=== PATIENT | female | born 1970 | race African-American/Black ===

== ENCOUNTER → 2016-08-24 | Outpatient (CLI) | payer BC ==
[2016-08-24 18:12] LABS: PROTHROMBIN TIME 27.5 SEC (11.4-15.4)
== END ==
LOC: OD 15:56
PROVIDERS: ATTEND Internal Medicine
DX: Z79.01 Long term (current) use of anticoagulants (principal); Z51.81 Encounter for therapeutic drug level monitoring
CPT/HCPCS: 36415; 85610

== ENCOUNTER → 2016-10-13 | Outpatient (CLI) | payer BC, OTHER ==
--- NOTE | 2016-10-13 13:56 | RADIOLOGY REPORT (SQ) ---
EXAM DESCRIPTION: FOOT LEFT COMPLETE COMPLETED DATE/TIME: 10/13/2016 1:37 pm REASON FOR STUDY: UNSPEC INJURY OF LEFT FOOT, INITIAL ENC (S99.922A), UNSPEC INJ OF LT KNEE ( S89.92 XA UNSPECIFIED INJURY OF LEFT LOWER LEG, INITIAL ENCOU S99.922A UNSPECIFIED INJURY OF LEFT FOOT, IN ITIAL ENCOUNTER COMPARISON: None. NUMBER OF VIEWS: Three views. TECHNIQUE: AP, lateral and oblique radiographic images acquired of the left foot. LIMITATIONS: None. FINDINGS: MINERALIZATION: Normal. BONES: No acute abnormality. Small plantar calcaneal spur. JOINTS: No effusions. SOFT TISSUES: No soft tissue swelling. No foreign body. OTHER: No other significant finding. IMPRESSION: Calcaneal spur with no acute abnormality. TECHNICAL DOCUMENTATION: JOB ID: [id number] [employer]- All Rights Reserved
--- NOTE | 2016-10-13 13:57 | RADIOLOGY REPORT (SQ) ---
EXAM DESCRIPTION: KNEE LEFT 3 VIEWS COMPLETED DATE/TIME: 10/13/2016 1:37 pm REASON FOR STUDY: UNSPEC INJURY OF LEFT FOOT, INITIAL ENC (S99.922A), UNSPEC INJ OF LT KNEE ( S89.92 XA UNSPECIFIED INJURY OF LEFT LOWER LEG, INITIAL ENCOU S99.922A UNSPECIFIED INJURY OF LEFT FOOT, IN ITIAL ENCOUNTER COMPARISON: None. NUMBER OF VIEWS: Four views. TECHNIQUE: AP, lateral, and both oblique radiographic images acquired of the left knee. LIMITATIONS: None. FINDINGS: MINERALIZATION: Normal. BONES: No acute fracture or dislocation. No worrisome bone lesions. JOINT: No effusion. SOFT TISSUES: No soft tissue swelling. No radio-opaque foreign body. OTHER: No other significant finding. IMPRESSION: NEGATIVE STUDY OF THE LEFT KNEE. NO RADIOGRAPHIC EVIDENCE OF ACUTE INJURY. TECHNICAL DOCUMENTATION: JOB ID: [id number] [employer]- All Rights Reserved
== END ==
LOC: RAD 13:04
PROVIDERS: ATTEND Physician Assistant
DX: S89.92XA Unspecified injury of left lower leg, initial encounter (principal); S99.922A Unspecified injury of left foot, initial encounter; X58.XXXA Exposure to other specified factors, initial encounter; Y93.9 Activity, unspecified; Y92.9 Unspecified place or not applicable

== ENCOUNTER 2017-06-24 17:47 | Inpatient (IN) | payer BC ==
[2017-06-24] MEDS ORDERED: TAPENTADOL HYDROCHLORIDE 100 MG PO PRN (18:49)
[2017-06-24 18:54] LABS: ABSOLUTE EOSINOPHILS # (AUTO) 0.1 10^3/uL (0.0-0.6); ABSOLUTE LYMPHOCYTES (AUTO) 0.9 10^3/uL (0.5-4.7); ABSOLUTE MONOCYTES (AUTO) 0.4 10^3/uL (0.1-1.4); BASOPHILS % (AUTO) 0.2 % (0-2); EOSINOPHILS % (AUTO) 1.4 % (0-6); HEMATOCRIT 35.7 % (36.0-47.0); HEMOGLOBIN 11.5 g/dL (12.0-15.5); LYMPHOCYTES % (AUTO) 20.2 % (13-45); MEAN CORPUSCULAR HEMOGLOBIN 27.2 pg (27.0-33.4); MEAN CORPUSCULAR HGB CONC 32.3 g/dL (32.0-36.0); MEAN CORPUSCULAR VOLUME 84 fl (80-97); MONOCYTES % (AUTO) 8.5 % (3-13); PLATELET COUNT 287 10^3/uL (150-450); RED BLOOD COUNT 4.24 10^6/uL (3.72-5.28); RED CELL DISTRIBUTION WIDTH 15.2 % (11.5-14.0); SEGMENTED NEUTROPHILS % (AUTO) 69.7 % (42-78); TOTAL CELLS COUNTED % (AUTO) 100 %; WHITE BLOOD COUNT 4.3 10^3/uL (4.0-10.5)
[2017-06-24 18:59] LABS: INTERNATIONAL RATION (INR) 3.52; PROTHROMBIN TIME 36.9 SEC (11.4-15.4)
[2017-06-24] MEDS ORDERED: INFLUENZA ADLT QUAD (36MOS+) 2017-18 VAC 0.5 ML SYR IM PRN (19:15)
[2017-06-24 19:16] LABS: ALANINE AMINOTRANSFERASE 18 U/L (9-52); ALBUMIN 3.9 g/dL (3.5-5.0); ALKALINE PHOSPHATASE 79 U/L (38-126); ANION GAP 11 (5-19); ASPARTATE AMINO TRANSFERASE 17 U/L (14-36); BILIRUBIN,DIRECT 0.4 mg/dL (0.0-0.4); BILIRUBIN,TOTAL 0.4 mg/dL (0.2-1.3); BLOOD UREA NITROGEN 11 mg/dL (7-20); CARBON DIOXIDE 26 mmol/L (22-30); CHLORIDE 107 mmol/L (98-107); CREATINE KINASE 69 U/L (30-135); GLUCOSE 69 mg/dL (75-110); POTASSIUM 4.2 mmol/L (3.6-5.0); SODIUM 143.8 mmol/L (137-145); TOTAL PROTEIN 8.1 g/dL (6.3-8.2)
[2017-06-24 19:27] LABS: CREATINE KINASE MB 0.22 ng/mL (<4.55); TROPONIN I 0.015 ng/mL
[2017-06-24] MEDS ORDERED: HYDROMORPHONE HCL INJ/PF 2 MG/ML AMPULE IV ONE (19:30)
--- NOTE | 2017-06-24 19:54 | EKG REPORT ---
SEVERITY:- NORMAL ECG - SINUS RHYTHM : Confirmed by: Cale Jones MD 24-Jun-2017 19:52:28
[2017-06-24] MEDS ORDERED: LANSOPRAZOLE 30 MG TAB.RAP.DR PO ONE (22:00)
[2017-06-24] MEDS ORDERED: WARFARIN SODIUM 5 MG TABLET PO SCH (22:00)
--- NOTE | 2017-06-24 22:02 | RADIOLOGY REPORT (SQ) ---
EXAM DESCRIPTION: CTA CHEST COMPLETED DATE/TIME: 06/24/2017 8:35 pm REASON FOR STUDY: CHEST PAIN, PLEURISY, H/O PE COMPARISON: None. TECHNIQUE: CT scan of the chest performed using helical scanning technique with dynamic intravenous contrast injection. Images reviewed with lung, soft tissue and bone windows. Reconstructed coronal and sagittal MPR images reviewed. Additional 3 dimensional post-processing performed to develop Maximal Intensity Projection images (IN P). All images stored on PACS. All CT scanners at this facility use dose modulation, iterative reconstruction, and/or weight based d osing when appropriate to reduce radiation dose to as low as reasonably achievable (ALARA). [facility]: Dose Right [facility]: CareDose [facility]: Dose Right [facility]: Teradose 4D [facility]: [employer] CONTRAST TYPE AND DOSE: contrast/concentration: Isovue 370.00 mg/ml; Total Contrast Delivered: 86.0 ml; Total Saline Delivered: 80.0 ml Contrast bolus adequate for pulmonary arteries and aorta. RENAL FUNCTION: Creatinine 0.95 RADIATION DOSE: CT Rad equipment meets quality standard of care and radiation dose reduction techniq ues were employed. CTDIvol: 48.7 - 58.6 mGy. DLP: 1870 mGy-cm. . LIMITATIONS: None. FINDINGS: LUNGS AND PLEURA: No masses, infiltrates, pneumothorax. No pleural effusions, calcificati ons. AORTA AND GREAT VESSELS: No aneurysm. Contrast bolus not optimized for the aorta. HEART: Cardiac enlargement without pericardial effusion. No significant coronary artery calcification s. PULMONARY ARTERIES: Main pulmonary arteries clear. Minimal clot is suggested in the proximal left lo wer lobe arterial branches. HILAR AND MEDIASTINAL STRUCTURES: Shotty nodes. No enlarged or abnormal nodes. HARDWARE: None in the chest. UPPER ABDOMEN: IVC filter. Limited assessment is otherwise normal. THYROID AND OTHER SOFT TISSUES: Enlarged nodular left thyroid lobe. Shotty symmetric bilateral axill jayjay adenopathy. BONES: No acute or significant finding. 3D MIPS: Confirm above findings. OTHER: No other significant finding. IMPRESSION: 1. Minimal left lower lobe pulmonary embolus. COMMENT: Quality ID # [id number]: Final reports with documentation of one or more dose reduction techniques (e.g., Automated exposure control, adjustment of the mA and/or kV according to patient size, use of iterative reconstruction technique) TECHNICAL DOCUMENTATION: JOB ID: [id number]- All Rights Reserved
--- NOTE | 2017-06-24 22:25 | PDOC H&P ---
History of Present Illness Admission Date/PCP: 06/24/17 17:47 DEX MCINTOSH MD History of Present Illness: DEVI VANN is a 47 year old female, She has a history of pulmonary embolism, she came to the office today for evaluation of, pleurisy, left sided chest pain that radiates to the back. She has a history of DVT and pulmonary embolism on anticoagulation with Coumadin. She was admitted directly from the office because of high index of suspicion for PE based on her symptomatology CTA chest was done it confirmed thrombosis in the proximal left lower lobe. The INR is 3.52 which is therapeutic this suggest that she still developed pulmonary embolism despite being optimized on Coumadin. She may need to use a different anticoagulation, she will be taken off Coumadin and she will be started on Xarelto once INR is below 2. Past Medical History Cardiac Medical History: Reports: DVT, Hypertension, Pulmonary Embolism Endocrine Medical History: Reports: Hypothyroidism, Obesity Past Surgical History Past Surgical History: Reports: Cardiac Catheterization, Tonsillectomy Denies: Pacemaker Social History Smoking Status: Former Smoker Hx Recreational Drug Use: No Hx Prescription Drug Abuse: No Family History Family History: Reviewed & Not Pertinent Parental Family History Reviewed: Yes Children Family History Reviewed: Yes Sibling(s) Family History Reviewed.: Yes Medication/Allergy Home Medications: Tapentadol Hydrochloride [Nucynta] 100 mg PO TID PRN 11/23/11 Warfarin Sodium [Coumadin 5 Mg Tablet] 10 mg PO DAILY 11/23/11 Allergies/Adverse Reactions: No Known Allergies Allergy (Verified 07/04/14 11:57) Review of Systems Constitutional: ABSENT: chills, fever(s), headache(s), weight gain, weight loss Eyes: ABSENT: visual disturbances Ears: ABSENT: hearing changes Cardiovascular: PRESENT: chest pain Respiratory: PRESENT: dyspnea Gastrointestinal: ABSENT: abdominal pain, constipation, diarrhea, hematemesis, hematochezia, nausea, vomiting Genitourinary: ABSENT: dysuria, hematuria Musculoskeletal: ABSENT: joint swelling Integumentary: ABSENT: rash, wounds Neurological: ABSENT: abnormal gait, abnormal speech, confusion, dizziness, focal weakness, syncope Psychiatric: ABSENT: anxiety, depression, homidical ideation, suicidal ideation Endocrine: ABSENT: cold intolerance, heat intolerance, menstrual abnormalities, polydipsia, polyuria Hematologic/Lymphatic: ABSENT: easy bleeding, easy bruising, lymphadenopathy Physical Exam Vital Signs: Temp Pulse Resp BP Pulse Ox 98.1 F 82 15 125/75 100 06/24/17 19:53 06/24/17 19:53 06/24/17 19:53 06/24/17 19:53 06/24/17 19:53 General appearance: PRESENT: no acute distress Head exam: PRESENT: atraumatic, normocephalic Eye exam: PRESENT: conjunctiva pink, EOMI, PERRLA Ear exam: PRESENT: normal external ear exam Mouth exam: PRESENT: moist, tongue midline Neck exam: PRESENT: full ROM Respiratory exam: PRESENT: clear to auscultation mohsen Cardiovascular exam: PRESENT: RRR, +S1, +S2 Pulses: PRESENT: normal dorsalis pedis pul, +2 pedal pulses bilateral Vascular exam: PRESENT: normal capillary refill GI/Abdominal exam: PRESENT: normal bowel sounds, soft Rectal exam: PRESENT: deferred Neurological exam: PRESENT: alert, awake, oriented to person, oriented to place , oriented to time, oriented to situation, CN II-XII grossly intact Psychiatric exam: PRESENT: appropriate affect, normal mood Skin exam: PRESENT: dry, intact, warm. ABSENT: cyanosis, rash Results Laboratory Results: 06/24/17 18:30 06/24/17 18:30 06/24/17 06/24/17 18:30 18:30 WBC 4.3 RBC 4.24 Hgb 11.5 L Hct 35.7 L MCV 84 MCH 27.2 MCHC 32.3 RDW 15.2 H Plt Count 287 Seg Neutrophils % 69.7 Lymphocytes % 20.2 Monocytes % 8.5 Eosinophils % 1.4 Basophils % 0.2 Absolute Neutrophils 3.0 Absolute Lymphocytes 0.9 Absolute Monocytes 0.4 Absolute Eosinophils 0.1 Absolute Basophils 0.0 Sodium 143.8 Potassium 4.2 Chloride 107 Carbon Dioxide 26 Anion Gap 11 BUN 11 Creatinine 0.95 Est GFR ( Amer) > 60 Est GFR (Non-Af Amer) > 60 Glucose 69 L Calcium 9.0 Total Bilirubin 0.4 AST 17 ALT 18 Alkaline Phosphatase 79 Total Protein 8.1 Albumin 3.9 06/24/17 06/24/17 18:30 18:30 Creatine Kinase 69 CK-MB (CK-2) 0.22 Troponin I 0.015 Impressions: Chest/Abdomen CTA 06/24/17 00:00 IMPRESSION: 1. Minimal left lower lobe pulmonary embolus. Assessment & Plan - Diagnosis (1) Pulmonary embolism Qualifiers: Pulmonary embolism type: other Chronicity: unspecified Acute cor pulmonale presence: without acute cor pulmonale Qualified Code(s): I26.99 - Other pulmonary embolism without acute cor pulmonale Is this a current diagnosis for this admission?: Yes Plan: Patient developed pulmonary embolism despite Coumadin optimization, she will required a different anticoagulantThe symptoms she manifested is consistent with pulmonary embolism
[2017-06-24] MEDS: HYDROMORPHONE HCL INJ/PF 2 MG/ML AMPULE IV PRN (23:31)
[2017-06-25 03:09] LABS: CREATINE KINASE MB < 0.22 ng/mL (<4.55); TROPONIN I < 0.012 ng/mL
[2017-06-25] MEDS: HYDROMORPHONE HCL INJ/PF 2 MG/ML AMPULE IV PRN ×5 (03:40→21:40)
[2017-06-25] MEDS: LANSOPRAZOLE 30 MG TAB.RAP.DR PO SCH ×2 (05:22→17:33)
--- NOTE | 2017-06-25 08:05 | EKG REPORT ---
SEVERITY:- ABNORMAL ECG - SINUS RHYTHM NONSPECIFIC ST-T CHANGES ANTEROSEPTAL LEADS. : Confirmed by: Cale Jones MD 25-Jun-2017 08:04:02
[2017-06-25 09:11] LABS: INTERNATIONAL RATION (INR) 3.37; PROTHROMBIN TIME 35.6 SEC (11.4-15.4)
[2017-06-25] MEDS ORDERED: (PENDING PHARMACY ID) (Warfarin Sodium 10 MG) PO SCH (10:00)
[2017-06-25 12:04] LABS: CREATINE KINASE MB < 0.22 ng/mL (<4.55)
[2017-06-25 12:05] LABS: TROPONIN I < 0.012 ng/mL
--- NOTE | 2017-06-25 21:14 | PDOC PROGRESS REPORT ---
Subjective Progress Note for:: 06/25/17 Subjective:: Patient was admitted yesterday for the management of pulmonary embolism. The INR is supratherapeutic, Coumadin is on hold, she will be started on Xarelto once INR is below 2 Reason For Visit: CHEST PAIN,PLEURISY,H/O PE Physical Exam Vital Signs: Temp Pulse Resp BP Pulse Ox 98.3 F 86 18 130/77 H 99 06/25/17 20:00 06/25/17 20:00 06/25/17 20:00 06/25/17 20:00 06/25/17 20:00 Intake & Output 06/24/17 06/25/17 06/26/17 06:59 06:59 06:59 Intake Total 839 320 Balance 839 320 General appearance: PRESENT: no acute distress Head exam: PRESENT: atraumatic, normocephalic Eye exam: PRESENT: conjunctiva pink, EOMI, PERRLA Ear exam: PRESENT: normal external ear exam Mouth exam: PRESENT: moist, tongue midline Neck exam: PRESENT: full ROM Respiratory exam: PRESENT: clear to auscultation mohsen Cardiovascular exam: PRESENT: +S1, +S2 Vascular exam: PRESENT: normal capillary refill GI/Abdominal exam: PRESENT: normal bowel sounds, soft Rectal exam: PRESENT: deferred Neurological exam: PRESENT: alert, awake, oriented to person, oriented to place , oriented to time, oriented to situation, CN II-XII grossly intact Psychiatric exam: PRESENT: appropriate affect, normal mood Skin exam: PRESENT: dry, intact, warm Results Laboratory Results: 06/24/17 18:30 06/24/17 18:30 06/24/17 06/24/17 06/25/17 18:30 18:30 02:29 Creatine Kinase 69 56 CK-MB (CK-2) 0.22 Troponin I 0.015 06/25/17 06/25/17 06/25/17 02:29 11:11 11:11 Creatine Kinase 51 CK-MB (CK-2) < 0.22 < 0.22 Troponin I < 0.012 < 0.012 Impressions: Chest/Abdomen CTA 06/24/17 00:00 IMPRESSION: 1. Minimal left lower lobe pulmonary embolus. Assessment & Plan - Diagnosis (1) Pulmonary embolism Qualifiers: Pulmonary embolism type: other Chronicity: unspecified Acute cor pulmonale presence: without acute cor pulmonale Qualified Code(s): I26.99 - Other pulmonary embolism without acute cor pulmonale Is this a current diagnosis for this admission?: Yes (2) Morbid obesity Is this a current diagnosis for this admission?: Yes (3) Pleurisy Is this a current diagnosis for this admission?: Yes Plan: She continues to require Dilaudid for pain control
[2017-06-26] MEDS: HYDROMORPHONE HCL INJ/PF 2 MG/ML AMPULE IV PRN ×6 (01:42→21:51)
[2017-06-26] MEDS: LANSOPRAZOLE 30 MG TAB.RAP.DR PO SCH ×2 (05:30→16:16)
[2017-06-26 07:28] LABS: INTERNATIONAL RATION (INR) 2.72; PROTHROMBIN TIME 30.2 SEC (11.4-15.4)
--- NOTE | 2017-06-26 21:17 | PDOC PROGRESS REPORT ---
Subjective Progress Note for:: 06/26/17 Subjective:: She was seen by the bedside, INR still above 2, Reason For Visit: PULMONARY EMBOLISM Physical Exam Vital Signs: Temp Pulse Resp BP Pulse Ox 98.4 F 103 H 15 106/64 100 06/26/17 19:43 06/26/17 19:43 06/26/17 19:43 06/26/17 19:43 06/26/17 19:43 Intake & Output 06/25/17 06/26/17 06/27/17 06:59 06:59 06:59 Intake Total 839 783 293 Output Total 450 Balance 839 333 293 General appearance: PRESENT: no acute distress, well-developed, well-nourished Head exam: PRESENT: atraumatic, normocephalic Eye exam: PRESENT: conjunctiva pink, EOMI, PERRLA Ear exam: PRESENT: normal external ear exam Mouth exam: PRESENT: moist, tongue midline Neck exam: PRESENT: full ROM Respiratory exam: PRESENT: clear to auscultation mohsen Cardiovascular exam: PRESENT: RRR, +S1, +S2 Vascular exam: PRESENT: normal capillary refill GI/Abdominal exam: PRESENT: normal bowel sounds, soft Rectal exam: PRESENT: deferred Neurological exam: PRESENT: alert, awake, oriented to person, oriented to place , oriented to time, oriented to situation, CN II-XII grossly intact. ABSENT: motor sensory deficit Psychiatric exam: PRESENT: appropriate affect, normal mood. ABSENT: homicidal ideation, suicidal ideation Skin exam: PRESENT: dry, intact, warm. ABSENT: cyanosis, rash Results Laboratory Results: 06/24/17 18:30 06/24/17 18:30 06/24/17 06/24/17 06/25/17 18:30 18:30 02:29 Creatine Kinase 69 56 CK-MB (CK-2) 0.22 Troponin I 0.015 06/25/17 06/25/17 06/25/17 02:29 11:11 11:11 Creatine Kinase 51 CK-MB (CK-2) < 0.22 < 0.22 Troponin I < 0.012 < 0.012 Impressions: Chest/Abdomen CTA 06/24/17 00:00 IMPRESSION: 1. Minimal left lower lobe pulmonary embolus. Assessment & Plan - Diagnosis (1) Pulmonary embolism Qualifiers: Pulmonary embolism type: other Chronicity: unspecified Acute cor pulmonale presence: without acute cor pulmonale Qualified Code(s): I26.99 - Other pulmonary embolism without acute cor pulmonale Is this a current diagnosis for this admission?: Yes (2) Morbid obesity Is this a current diagnosis for this admission?: Yes (3) Pleurisy Is this a current diagnosis for this admission?: Yes
[2017-06-27] MEDS: HYDROMORPHONE HCL INJ/PF 2 MG/ML AMPULE IV PRN ×5 (01:53→22:46)
[2017-06-27] MEDS: LANSOPRAZOLE 30 MG TAB.RAP.DR PO SCH ×2 (06:07→17:32)
[2017-06-27 07:52] LABS: INTERNATIONAL RATION (INR) 2.35; PROTHROMBIN TIME 26.9 SEC (11.4-15.4)
[2017-06-27] MEDS ORDERED: KETOROLAC TROMETHAMINE INJ/PF 30 MG/1 ML SDV IV PRN (10:16)
[2017-06-27] MEDS ORDERED: NORMAL SALINE 1000 ML 1,000 ML IV PRN (10:17)
[2017-06-27 11:07] LABS: CREATINE KINASE MB < 0.22 ng/mL (<4.55); TROPONIN I < 0.012 ng/mL
--- NOTE | 2017-06-27 14:48 | PDOC PROGRESS REPORT ---
Subjective Progress Note for:: 06/27/17 Subjective:: She complained of chest pain earlier today, the chest pain is fleeting is very tender on palpation suggesting a chest wall pain. The INR is still above 2 not yet started on Xarelto Reason For Visit: PULMONARY EMBOLISM Physical Exam Vital Signs: Temp Pulse Resp BP Pulse Ox 98.1 F 95 16 115/62 98 06/27/17 08:33 06/27/17 08:33 06/27/17 08:33 06/27/17 08:33 06/27/17 08:33 Intake & Output 06/26/17 06/27/17 06/28/17 06:59 06:59 06:59 Intake Total 783 1038 Output Total 450 850 Balance 333 188 Weight 156 kg General appearance: PRESENT: no acute distress, well-developed, well-nourished Head exam: PRESENT: atraumatic, normocephalic Eye exam: PRESENT: conjunctiva pink, EOMI, PERRLA Ear exam: PRESENT: normal external ear exam Mouth exam: PRESENT: moist, tongue midline Neck exam: PRESENT: full ROM Respiratory exam: PRESENT: chest wall tenderness, clear to auscultation mohsen Cardiovascular exam: PRESENT: RRR, +S1, +S2 Vascular exam: PRESENT: normal capillary refill GI/Abdominal exam: PRESENT: normal bowel sounds, soft Rectal exam: PRESENT: deferred Neurological exam: PRESENT: alert, awake, oriented to person, oriented to place , oriented to time, oriented to situation, CN II-XII grossly intact Psychiatric exam: PRESENT: appropriate affect, normal mood Skin exam: PRESENT: dry, intact, warm Results Laboratory Results: 06/24/17 18:30 06/24/17 18:30 06/24/17 06/24/17 06/25/17 18:30 18:30 02:29 Creatine Kinase 69 56 CK-MB (CK-2) 0.22 Troponin I 0.015 06/25/17 06/25/17 06/25/17 02:29 11:11 11:11 Creatine Kinase 51 CK-MB (CK-2) < 0.22 < 0.22 Troponin I < 0.012 < 0.012 06/27/17 06/27/17 10:20 10:20 Creatine Kinase 39 CK-MB (CK-2) < 0.22 Troponin I < 0.012 Impressions: Chest/Abdomen CTA 06/24/17 00:00 IMPRESSION: 1. Minimal left lower lobe pulmonary embolus. Assessment & Plan - Diagnosis (1) Pulmonary embolism Qualifiers: Pulmonary embolism type: other Chronicity: unspecified Acute cor pulmonale presence: without acute cor pulmonale Qualified Code(s): I26.99 - Other pulmonary embolism without acute cor pulmonale Is this a current diagnosis for this admission?: Yes (2) Morbid obesity Is this a current diagnosis for this admission?: Yes (3) Pleurisy Is this a current diagnosis for this admission?: Yes (4) Chest wall pain Is this a current diagnosis for this admission?: Yes Plan: Give Toradol 30 mg IV every 6 hours , 4 doses
--- NOTE | 2017-06-27 16:08 | EKG REPORT ---
SEVERITY:- BORDERLINE ECG - SINUS RHYTHM BORDERLINE T ABNORMALITIES, INFERIOR LEADS : Confirmed by: Cale Jones MD 27-Jun-2017 16:08:22
[2017-06-28] MEDS: HYDROMORPHONE HCL INJ/PF 2 MG/ML AMPULE IV PRN ×5 (03:05→20:01)
[2017-06-28] MEDS: LANSOPRAZOLE 30 MG TAB.RAP.DR PO SCH ×2 (06:50→18:00)
[2017-06-28 07:28] LABS: INTERNATIONAL RATION (INR) 1.92; PROTHROMBIN TIME 23.1 SEC (11.4-15.4)
[2017-06-28] MEDS ORDERED: RIVAROXABAN 15 MG TABLET PO ONE (10:00)
[2017-06-28] MEDS: RIVAROXABAN 15 MG TABLET PO SCH (18:01)
--- NOTE | 2017-06-28 20:31 | PDOC PROGRESS REPORT ---
Subjective Progress Note for:: 06/28/17 Subjective:: She was seen by the bedside, she has less pain, chest, 2D she was started on Xarelto today, the INR is below 2 Reason For Visit: PULMONARY EMBOLISM Physical Exam Vital Signs: Temp Pulse Resp BP Pulse Ox 98.3 F 94 15 123/70 100 06/28/17 20:00 06/28/17 20:00 06/28/17 20:00 06/28/17 20:00 06/28/17 20:00 Intake & Output 06/27/17 06/28/17 06/29/17 06:59 06:59 06:59 Intake Total 1038 1045 100 Output Total 850 Balance 188 1045 100 Weight 156.3 kg General appearance: PRESENT: no acute distress, well-developed, well-nourished Head exam: PRESENT: atraumatic, normocephalic Eye exam: PRESENT: conjunctiva pink, EOMI, PERRLA Ear exam: PRESENT: normal external ear exam Mouth exam: PRESENT: moist, tongue midline Neck exam: PRESENT: full ROM Respiratory exam: PRESENT: clear to auscultation mohsen Cardiovascular exam: PRESENT: RRR, +S1, +S2 Pulses: PRESENT: normal dorsalis pedis pul, +2 pedal pulses bilateral Vascular exam: PRESENT: normal capillary refill GI/Abdominal exam: PRESENT: normal bowel sounds, soft Rectal exam: PRESENT: deferred Neurological exam: PRESENT: alert, awake, oriented to person, oriented to place , oriented to time, oriented to situation, CN II-XII grossly intact Psychiatric exam: PRESENT: appropriate affect, normal mood Skin exam: PRESENT: dry, intact, warm. ABSENT: cyanosis, rash Results Laboratory Results: 06/24/17 18:30 06/24/17 18:30 06/24/17 06/24/17 06/25/17 18:30 18:30 02:29 Creatine Kinase 69 56 CK-MB (CK-2) 0.22 Troponin I 0.015 06/25/17 06/25/17 06/25/17 02:29 11:11 11:11 Creatine Kinase 51 CK-MB (CK-2) < 0.22 < 0.22 Troponin I < 0.012 < 0.012 06/27/17 06/27/17 10:20 10:20 Creatine Kinase 39 CK-MB (CK-2) < 0.22 Troponin I < 0.012 Impressions: Chest/Abdomen CTA 06/24/17 00:00 IMPRESSION: 1. Minimal left lower lobe pulmonary embolus. Assessment & Plan - Diagnosis (1) Pulmonary embolism Qualifiers: Pulmonary embolism type: other Chronicity: unspecified Acute cor pulmonale presence: without acute cor pulmonale Qualified Code(s): I26.99 - Other pulmonary embolism without acute cor pulmonale Is this a current diagnosis for this admission?: Yes (2) Morbid obesity Is this a current diagnosis for this admission?: Yes (3) Pleurisy Is this a current diagnosis for this admission?: Yes (4) Chest wall pain Is this a current diagnosis for this admission?: Yes
--- NOTE | 2017-06-28 20:36 | PDOC DISCHARGE SUMMARY ---
General - Admit/Disc Date/PCP Admission Date/Primary Care Provider: 06/24/17 17:47 DEX MCINTOSH MD Discharge Date: 06/29/17 - Discharge Diagnosis (1) Pulmonary embolism Is this a current diagnosis for this admission?: Yes (2) Morbid obesity Is this a current diagnosis for this admission?: Yes (3) Pleurisy Is this a current diagnosis for this admission?: Yes (4) Chest wall pain Is this a current diagnosis for this admission?: Yes - Additional Information Discharge Activity: Activity As Tolerated Prescriptions: Rivaroxaban [Xarelto 15 mg Tablet] 15 mg PO BIDBS #42 tablet Home Medications: Tapentadol Hydrochloride [Nucynta] 100 mg PO TID PRN 11/23/11 Rivaroxaban [Xarelto 15 mg Tablet] 15 mg PO BIDBS #42 tablet 06/28/17 History of Present Illness History of Present Illness: DEVI VANN is a 47 year old female, She has a history of pulmonary embolism, she came to the office today for evaluation of, pleurisy, left sided chest pain that radiates to the back. She has a history of DVT and pulmonary embolism on anticoagulation with Coumadin. She was admitted directly from the office because of high index of suspicion for PE based on her symptomatology CTA chest was done it confirmed thrombosis in the proximal left lower lobe. The INR is 3.52 which is therapeutic this suggest that she still developed pulmonary embolism despite being optimized on Coumadin. She may need to use a different anticoagulation, she will be taken off Coumadin and she will be started on Xarelto once INR is below 2. Hospital Course Hospital Course: She was admitted for the management of pulmonary embolism, she was on Coumadin, INR was 3.5 when she presented with typical pleurisy, CTA chest was done, confirmed pulmonary embolism. The Coumadin was held on until INR is below 2 and then she was started on Xarelto. She had episode of severe chest pain, it was tender on palpation this suggests chest wall pain, was treated with intravenous Toradol, 1 dose, patient declined to receive any more doses because she said the medication makes her feel weird. Physical Exam Vital Signs: Temp Pulse Resp BP Pulse Ox 98.3 F 94 15 123/70 100 06/28/17 20:00 06/28/17 20:00 06/28/17 20:00 06/28/17 20:00 06/28/17 20:00 Intake & Output 06/27/17 06/28/17 06/29/17 06:59 06:59 06:59 Intake Total 1038 1045 100 Output Total 850 Balance 188 1045 100 Weight 156.3 kg General appearance: PRESENT: no acute distress, well-developed, well-nourished Head exam: PRESENT: atraumatic, normocephalic Eye exam: PRESENT: conjunctiva pink, EOMI, PERRLA Ear exam: PRESENT: normal external ear exam Mouth exam: PRESENT: moist, tongue midline Neck exam: PRESENT: full ROM Respiratory exam: PRESENT: clear to auscultation mohsen Cardiovascular exam: PRESENT: RRR, +S1, +S2 Pulses: PRESENT: normal dorsalis pedis pul, +2 pedal pulses bilateral Vascular exam: PRESENT: normal capillary refill GI/Abdominal exam: PRESENT: normal bowel sounds, soft Rectal exam: PRESENT: deferred Neurological exam: PRESENT: alert, awake, oriented to person, oriented to place , oriented to time, oriented to situation, CN II-XII grossly intact Psychiatric exam: PRESENT: appropriate affect, normal mood Skin exam: PRESENT: dry, intact, warm Results Laboratory Results: 06/24/17 18:30 06/24/17 18:30 06/24/17 06/24/17 06/25/17 18:30 18:30 02:29 Creatine Kinase 69 56 CK-MB (CK-2) 0.22 Troponin I 0.015 06/25/17 06/25/17 06/25/17 02:29 11:11 11:11 Creatine Kinase 51 CK-MB (CK-2) < 0.22 < 0.22 Troponin I < 0.012 < 0.012 06/27/17 06/27/17 10:20 10:20 Creatine Kinase 39 CK-MB (CK-2) < 0.22 Troponin I < 0.012 Impressions: Chest/Abdomen CTA 06/24/17 00:00 IMPRESSION: 1. Minimal left lower lobe pulmonary embolus. Qualifiers - * PATEINT BEING DISCHARGED WITH ANY OF THE FOLLOWING DIAGNOSIS?: VTE (PE or DVT) VTE patient discharged on overlapping Therapy?: Yes Plan Discharge Plan: She is no longer taking warfarin, she is started on Xarelto, 15mg, 1 tablet p.o. twice daily for 21 days then 20 mg 1 tablet daily for 6 months to 1 year then 10 mg p.o. daily indefinitely
[2017-06-28] MEDS ORDERED: POLYETHYLENE GLYCOL 3350 POWDER 17 GM/1 PACKET PO PRN (20:45)
[2017-06-29] MEDS: HYDROMORPHONE HCL INJ/PF 2 MG/ML AMPULE IV PRN ×4 (00:09→12:38)
[2017-06-29] MEDS: LANSOPRAZOLE 30 MG TAB.RAP.DR PO SCH (05:06)
[2017-06-29] MEDS: RIVAROXABAN 15 MG TABLET PO SCH (07:52)
[2017-06-29 08:30] LABS: INTERNATIONAL RATION (INR) 2.74; PROTHROMBIN TIME 30.3 SEC (11.4-15.4)
[2017-06-29 12:12] VITALS: BP 108/64
== END 2017-06-29 16:00 | disposition home or self-care (01) | DRG 176 ==
LOC: OBSVTOIN 17:47 → 5 17:47
PROVIDERS: ADMIT Internal Medicine; ATTEND Internal Medicine
DX: I26.99 Other pulmonary embolism without acute cor pulmonale (principal); Z68.43 Body mass index [BMI] 50.0-59.9, adult; I10 Essential (primary) hypertension; E66.9 Obesity, unspecified; R09.1 Pleurisy; E03.9 Hypothyroidism, unspecified; Z86.711 Personal history of pulmonary embolism; Z86.718 Personal history of other venous thrombosis and embolism; Z79.01 Long term (current) use of anticoagulants; Z87.891 Personal history of nicotine dependence
CPT/HCPCS: 36415; 71275; 80048; 80076; 82550; 82553; 84484; 85025; 85610; 93005; 93010; G0378; G0379; J1170; J1885

== ENCOUNTER 2017-07-02 17:05 | Emergency (ER) | payer BC ==
[2017-07-02] MEDS ORDERED: IPRATROPIUM/ALBUTEROL 0.5-2.5 MG/3 ML AMPUL NEB ONE ×2 (17:11→18:05)
[2017-07-02] MEDS ORDERED: LORAZEPAM INJ 2 MG/1 ML VIAL ONE (17:11)
[2017-07-02] MEDS ORDERED: FENTANYL CITRATE INJ/PF 100 MCG/2 ML AMPUL ONE (17:15)
[2017-07-02 17:37] LABS: ARTERIAL BLOOD BASE EXCESS -5.8 mmol/L; ARTERIAL BLOOD H2CO3 0.82 mmol/L (1.05-1.35); ARTERIAL BLOOD HCO3 17.2 mmol/L (20-26); ARTERIAL BLOOD O2 SATURATION 97.6 % (94-98); ARTERIAL BLOOD PCO2 27.3 mmHg (35-45); ARTERIAL BLOOD PH 7.42 (7.35-7.45); ARTERIAL BLOOD PO2 96.7 mmHg (80-100)
--- NOTE | 2017-07-02 17:38 | ER Document Report ---
ED General <BHAVYA LANTIGUA - Last Filed: 07/03/17 01:33> - General Mode of Arrival: Medic Information source: Patient, Relative TRAVEL OUTSIDE OF THE [place] IN LAST 30 DAYS: No - HPI Onset: Other - 2 days prior to arrival Onset/Duration: Gradual, Persistent Quality of pain: Pressure, Stabbing Severity: Moderate Pain Level: 2 Associated symptoms: denies: Productive cough, Fever Exacerbated by: Coughing, Deep breathing Relieved by: Remaining still Similar symptoms previously: Yes Recently seen / treated by doctor: Yes - Recent hospitalization with discharge <JOEY AGUILAR - Last Filed: 07/03/17 14:35> - General Chief Complaint: Respiratory Distress Stated Complaint: WEAKNESS Time Seen by Provider: 07/02/17 17:23 Notes: 47-year-old female with a history of factor V Leiden and recent diagnosis of pulmonary embolism presents via EMS in respiratory distress with associated chest pain. EMS reports they found the patient cyanotic with an O2 saturation of 50. Was placed on CPAP and became more arousable per EMS. Had a recent hospitalization where she was found to have a pulmonary embolism. She was discharged 3 days prior to arrival. She states since the time of discharge she is experienced consistent chest pain, shortness of breath. She is currently on Xarelto. She states she has been compliant since discharge. She denies any past medical history of hypertension coronary artery disease or congestive heart failure. (JOEY AGUILAR) - Related Data Allergies/Adverse Reactions: No Known Allergies Allergy (Verified 07/04/14 11:57) Past Medical History <BHAVYA LANTIGUA - Last Filed: 07/03/17 01:33> - General Information source: Patient, Relative, Emergency Med Personnel, [facility] Records - Social History Smoking Status: Never Smoker Frequency of alcohol use: None Drug Abuse: None Lives with: Family Family History: Reviewed & Not Pertinent - Past Medical History Cardiac Medical History: Reports: Hx DVT, Hx Pulmonary Embolism Pulmonary Medical History: Denies: Hx Tuberculosis Endocrine Medical History: Reports: Hx Hypothyroidism Past Surgical History: Reports: Hx Cardiac Catheterization, Hx Gynecologic Surgery, Hx Tonsillectomy. Denies: Hx Pacemaker - Immunizations Immunizations up to date: Yes Hx Diphtheria, Pertussis, Tetanus Vaccination: Yes Hx Pneumococcal Vaccination: 07/03/09 <JOEY AGUILAR - Last Filed: 07/03/17 14:35> Other: Factor V Leiden (JOEY AGUILAR) Review of Systems - Review of Systems Constitutional: Weakness. denies: Fever EENT: No symptoms reported Cardiovascular: Chest pain Respiratory: Short of breath Gastrointestinal: No symptoms reported Genitourinary: No symptoms reported <JOEY AGUILAR - Last Filed: 07/03/17 14:35> Physical Exam - Respiratory Respiratory status: Respiratory distress, Tachypnea Chest status: Tender Breath sounds: Normal Chest palpation: Tender - Cardiovascular Rhythm: Tachycardia Heart sounds: Normal auscultation Murmur: No Pulses: Bounding: Brachial, Radial, Posterior tibial Decreased capillary refill in seconds: 3 - Extremities General upper extremity: Normal inspection, Nontender, Normal color, Normal ROM , Normal temperature General lower extremity: Normal inspection, Nontender, Normal color, Normal ROM , Normal temperature, Normal weight bearing. No: Doug's sign <JOEY AGUILAR - Last Filed: 07/03/17 14:35> - Vital signs Vitals: Resp 43 H 07/02/17 17:09 Course - Laboratory Result Diagrams: 07/02/17 19:35 07/02/17 19:35 <BHAVYA LANTIGUA - Last Filed: 07/03/17 01:33> - Laboratory Result Diagrams: 07/02/17 19:35 07/02/17 19:35 <JOEY AGUILAR - Last Filed: 07/03/17 14:35> - Re-evaluation Re-evalutation: 07/03/17 00:50 Patient signed out to me by Dr. Aguilar. Patient did have a single blood pressure with a systolic of 89. Most her blood pressures have been systolically 90s to low 100s. Dr. Aguilar informed that the patient refused and the patient is on BiPAP. I did go and evaluate the patient. Patient was sleeping comfortably. I did wake her up recheck her blood pressure. It is now 96/75. I did do a bedside ultrasound. Patient does have pericardial effusion is seen on CT scan by do not see evidence of right ventricular collapse at this time. No evidence of tamponade on my bedside ultrasound. She does not have any JVD on exam. I will continue to monitor the patient closely. I do have a centesis tray at bedside in case a emergent pericardiocentesis as needed. I do not think doing a pericardiocentesis prophylactically is appropriate at this time being that the patient has no signs of tamponade and the patient is on a blood thinner and also received a shot of Lovenox here in the ER. 07/03/17 01:33 The transport from [facility] got diverted. There is no transport pending at this time till possibly after shift change. I therefore asked to contact her local [facility] to see if they could spare an ALS unit to transport the patient is a feel the patient should be at a facility where they have possibility of doing pericardiocentesis with drainage under fluoroscopy with an appropriate sized catheter. We do not have an actual pericardiocentesis kit here. We only have a paracentesis kit. Also been the patient's on blood thinners I would have to do a pericardiocentesis under ultrasound guidance which he did not feels quite is safe is doing under fluoroscopy being the patient is on blood thinners. Currently patient fortunately does not need emergent pericardiocentesis being that her fusion appears to be is stable and her blood pressures remained the same range. The paramedics have arrived. Patient on exam he is to stay the same condition. She continues to have some tachycardia but her blood pressure currently under eval is 104/76. Her oxygen saturations 98% on BiPAP. She patient says she feels the same and is no worse or no better. I did repeat a bedside ultrasound of her heart. She continues to not show any signs of right ventricular collapse and effusion appears to be approximately the same size. Feel patient stable for transfer. (BHAVYA LANTIGUA) 07/02/17 22:40 47-year-old female with history of factor V Leiden presents via EMS in respiratory distress and complaining of chest pain. Upon arrival patient is tachycardic, tachypneic and is in moderate distress. Patient was placed on web content writer and EKG was obtained which showed the patient to in sinus tachycardia. Patient arrived on BiPAP. The topic of intubation was immediately addressed and the patient adamantly denies. She is alert and oriented 3. Patient was found to have a new leukocytosis, and elevated BNP of 10,000 and an elevated troponin of 0.358. CTA was obtained and showed a new pericardial effusion. She received IV fluids, fentanyl, aspirin, Lovenox and digoxin. In-house cardiology contacted me with concern for mild elevation in the lateral leads. [facility] was contacted and I did speak to their service desk team lead who recommends transfer and admission to medicine with consult to cardiology for possible pericardial window. Patient was accepted by Dr. norwood and Dr. Mcmahon. Recommendation to administer Lovenox given by Dr Norwood. Patient is resting more comfortably on bi-pap now. No evidence of tamponade on physical exam or bedside ultrasound. Patient was signed out to Dr lantigua. [facility] MICU unit due to arrival 0130 per last report. 07/02/17 22:53 Laboratory 07/02/17 07/02/17 07/02/17 17:20 19:35 19:35 WBC 19.9 H RBC 4.90 Hgb 13.3 Hct 41.2 MCV 84 MCH 27.1 MCHC 32.3 RDW 14.8 H Plt Count 336 Total Counted 100 Seg Neutrophils % Not Reportable Seg Neuts % (Manual) 82 H Band Neutrophils % 6 H Lymphocytes % Not Reportable Lymphocytes % (Manual) 5 L Monocytes % Not Reportable Monocytes % (Manual) 7 Eosinophils % Not Reportable Eosinophils % (Manual) 0 Basophils % Not Reportable Basophils % (Manual) 0 Absolute Neutrophils Not Reportable Abs Neuts (Manual) 17.5 H Absolute Lymphocytes Not Reportable Abs Lymphs (Manual) 1.0 Absolute Monocytes Not Reportable Abs Monocytes (Manual) 1.4 Absolute Eosinophils Not Reportable Absolute Eos (Manual) 0.0 Absolute Basophils Not Reportable Abs Basophils (Manual) 0.0 Toxic Vacuolation PRESENT Large Platelets PRESENT Platelet Comment ADEQUATE Polychromasia SLIGHT Anisocytosis SLIGHT Ovalocytes SLIGHT Carbonic Acid 0.82 L HCO3/H2CO3 Ratio 20:1 ABG pH 7.42 ABG pCO2 27.3 L ABG pO2 96.7 ABG HCO3 17.2 L ABG Total CO2 18.0 L ABG O2 Saturation 97.6 ABG Base Excess -5.8 FiO2 30% Sodium 136.3 L Potassium 4.5 Chloride 101 Carbon Dioxide 21 L Anion Gap 14 BUN 18 Creatinine 1.12 Est GFR ( Amer) > 60 Est GFR (Non-Af Amer) 52 L Glucose 135 H Lactic Acid Calcium 9.2 Total Bilirubin 1.8 H Direct Bilirubin 1.0 H Neonat Total Bilirubin Not Reportable Neonat Direct Bilirubin Not Reportable Neonat Indirect Bili Not Reportable AST 17 ALT 8 L Alkaline Phosphatase 79 Creatine Kinase 57 CK-MB (CK-2) Troponin I NT-Pro-B Natriuret Pep Total Protein 8.5 H Albumin 3.9 Urine Color Urine Appearance Urine pH Ur Specific [place] Urine Protein Urine Glucose (UA) Urine Ketones Urine Blood Urine Nitrite Urine Bilirubin Urine Urobilinogen Ur Leukocyte Esterase Urine WBC (Auto) Urine RBC (Auto) U Hyaline Cast (Auto) Urine Bacteria (Auto) Squamous Epi Cells Auto Urine Mucus (Auto) Urine Ascorbic Acid 07/02/17 07/02/17 07/02/17 19:35 20:55 21:55 WBC RBC Hgb Hct MCV MCH MCHC RDW Plt Count Total Counted Seg Neutrophils % Seg Neuts % (Manual) Band Neutrophils % Lymphocytes % Lymphocytes % (Manual) Monocytes % Monocytes % (Manual) Eosinophils % Eosinophils % (Manual) Basophils % Basophils % (Manual) Absolute Neutrophils Abs Neuts (Manual) Absolute Lymphocytes Abs Lymphs (Manual) Absolute Monocytes Abs Monocytes (Manual) Absolute Eosinophils Absolute Eos (Manual) Absolute Basophils Abs Basophils (Manual) Toxic Vacuolation Large Platelets Platelet Comment Polychromasia Anisocytosis Ovalocytes Carbonic Acid HCO3/H2CO3 Ratio ABG pH ABG pCO2 ABG pO2 ABG HCO3 ABG Total CO2 ABG O2 Saturation ABG Base Excess FiO2 Sodium Potassium Chloride Carbon Dioxide Anion Gap BUN Creatinine Est GFR ( Amer) Est GFR (Non-Af Amer) Glucose Lactic Acid 2.3 H Calcium Total Bilirubin Direct Bilirubin Neonat Total Bilirubin Neonat Direct Bilirubin Neonat Indirect Bili AST ALT Alkaline Phosphatase Creatine Kinase CK-MB (CK-2) 0.96 Troponin I 0.358 NT-Pro-B Natriuret Pep 9980 H Total Protein Albumin Urine Color HEMANTH Urine Appearance SLIGHTLY-CLOUDY Urine pH 5.0 Ur Specific [place] 1.032 Urine Protein 100 H Urine Glucose (UA) NEGATIVE Urine Ketones TRACE H Urine Blood SMALL H Urine Nitrite NEGATIVE Urine Bilirubin SMALL H Urine Urobilinogen 4.0 H Ur Leukocyte Esterase NEGATIVE Urine WBC (Auto) 1 Urine RBC (Auto) 4 U Hyaline Cast (Auto) 10 Urine Bacteria (Auto) TRACE Squamous Epi Cells Auto <1 Urine Mucus (Auto) MANY Urine Ascorbic Acid NEGATIVE Chest X-Ray 07/02/17 17:17 IMPRESSION: BIBASILAR OPACITIES IN THE SETTING OF LOW LUNG VOLUMES COULD REPRESENT SUBSEGMENTAL ATELECTASIS, ASPIRATION, OR PNEUMONIA. Chest/Abdomen CTA 07/02/17 17:39 IMPRESSION: NONDIAGNOSTIC FOR THE EVALUATION OF PULMONARY EMBOLI DUE TO TIMING OF CONTRAST BOLUS. INTERVAL DEVELOPMENT OF SMALL TO MODERATE PERICARDIAL EFFUSION. CARDIOLOGY CONSULTATION RECOMMENDED. INTERVAL DEVELOPMENT OF MILD INTERSTITIAL EDEMA WITH SMALL BILATERAL PLEURAL EFFUSIONS. 07/03/17 14:19 (JOEY AGUILAR) - Vital Signs Vital signs: Temp Pulse Resp BP Pulse Ox 99.8 F 129 H 23 H 104/76 99 07/02/17 21:15 07/02/17 21:15 07/03/17 01:21 07/03/17 01:21 07/03/17 01:21 - Laboratory Laboratory results interpreted by me: 07/02/17 07/02/17 07/02/17 17:20 19:35 19:35 WBC 19.9 H RDW 14.8 H Seg Neuts % (Manual) 82 H Band Neutrophils % 6 H Lymphocytes % (Manual) 5 L Abs Neuts (Manual) 17.5 H Carbonic Acid 0.82 L ABG pCO2 27.3 L ABG HCO3 17.2 L ABG Total CO2 18.0 L Sodium 136.3 L Carbon Dioxide 21 L Est GFR (Non-Af Amer) 52 L Glucose 135 H Lactic Acid Total Bilirubin 1.8 H Direct Bilirubin 1.0 H ALT 8 L NT-Pro-B Natriuret Pep Total Protein 8.5 H Urine Protein Urine Ketones Urine Blood Urine Bilirubin Urine Urobilinogen 07/02/17 07/02/17 07/02/17 19:35 20:55 21:55 WBC RDW Seg Neuts % (Manual) Band Neutrophils % Lymphocytes % (Manual) Abs Neuts (Manual) Carbonic Acid ABG pCO2 ABG HCO3 ABG Total CO2 Sodium Carbon Dioxide Est GFR (Non-Af Amer) Glucose Lactic Acid 2.3 H Total Bilirubin Direct Bilirubin ALT NT-Pro-B Natriuret Pep 9980 H Total Protein Urine Protein 100 H Urine Ketones TRACE H Urine Blood SMALL H Urine Bilirubin SMALL H Urine Urobilinogen 4.0 H Discharge <BHAVYA LANTIGUA - Last Filed: 07/03/17 01:33> <JOEY AGUILAR - Last Filed: 07/03/17 14:35> - Discharge Clinical Impression: NSTEMI (non-ST elevated myocardial infarction), Pulmonary embolism, Pericardial effusion without cardiac tamponade Condition: Critical Disposition: [facility] Referrals: DEX MCINTOSH MD [Primary Care Provider] - Follow up as needed
[2017-07-02 17:39] LABS: ARTERIAL BLOOD FIO2 30%
--- NOTE | 2017-07-02 17:59 | RADIOLOGY REPORT (SQ) ---
EXAM DESCRIPTION: CHEST SINGLE VIEW COMPLETED DATE/TIME: 07/02/2017 5:47 pm REASON FOR STUDY: respiratory distress COMPARISON: 06/24/2017 NUMBER OF VIEWS: One view. TECHNIQUE: Single frontal radiographic view of the chest acquired. LIMITATIONS: Low lung volumes and soft tissue attenuation. FINDINGS: LUNGS AND PLEURA: Low lung volumes. Bibasilar opacities. No pleural effusion. MEDIASTINUM AND HILAR STRUCTURES: No masses. No contour abnormality. HEART AND VASCULAR STRUCTURES: Normal size. No evidence for failure. BONES: No acute findings. HARDWARE: None in the chest. OTHER: No other significant finding. IMPRESSION: BIBASILAR OPACITIES IN THE SETTING OF LOW LUNG VOLUMES COULD REPRESENT SUBSEGMENTAL ATEL ECTASIS, ASPIRATION, OR PNEUMONIA. TECHNICAL DOCUMENTATION: JOB ID: [id number] [employer]- All Rights Reserved Reading location - IP/workstation name: [email or web address]
[2017-07-02] MEDS ORDERED: LORAZEPAM INJ 2 MG/1 ML VIAL IV ONE (18:06)
[2017-07-02] MEDS ORDERED: FENTANYL CITRATE INJ/PF 100 MCG/2 ML AMPUL IV ONE ×3 (18:06→20:27)
[2017-07-02] MEDS ORDERED: DOXYCYCLINE HYCLATE 100 MG TABLET PO ONE (18:25)
[2017-07-02 19:56] LABS: HEMATOCRIT 41.2 % (36.0-47.0); HEMOGLOBIN 13.3 g/dL (12.0-15.5); MEAN CORPUSCULAR HEMOGLOBIN 27.1 pg (27.0-33.4); MEAN CORPUSCULAR HGB CONC 32.3 g/dL (32.0-36.0); MEAN CORPUSCULAR VOLUME 84 fl (80-97); PLATELET COUNT 336 10^3/uL (150-450); RED CELL DISTRIBUTION WIDTH 14.8 % (11.5-14.0); WHITE BLOOD COUNT 19.9 10^3/uL (4.0-10.5)
[2017-07-02 20:03] LABS: ALANINE AMINOTRANSFERASE 8 U/L (9-52); ALBUMIN 3.9 g/dL (3.5-5.0); ALKALINE PHOSPHATASE 79 U/L (38-126); ANION GAP 14 (5-19); ASPARTATE AMINO TRANSFERASE 17 U/L (14-36); BILIRUBIN,TOTAL 1.8 mg/dL (0.2-1.3); BLOOD UREA NITROGEN 18 mg/dL (7-20); CALCIUM 9.2 mg/dL (8.4-10.2); CARBON DIOXIDE 21 mmol/L (22-30); CHLORIDE 101 mmol/L (98-107); CREATINE KINASE 57 U/L (30-135); GLUCOSE 135 mg/dL (75-110); POTASSIUM 4.5 mmol/L (3.6-5.0); SODIUM 136.3 mmol/L (137-145); TOTAL PROTEIN 8.5 g/dL (6.3-8.2)
[2017-07-02 20:15] LABS: CREATINE KINASE MB 0.96 ng/mL (<4.55)
[2017-07-02 20:16] LABS: ABSOLUTE MONOCYTES # (MANUAL) 1.4 10^3/uL (0.1-1.4); ABSOLUTE NEUTROPHILS# (MANUAL) 17.5 10^3/uL (1.7-8.2); ANISOCYTOSIS SLIGHT; BAND NEUTROPHILS % (MANUAL) 6 % (3-5); BASOPHILS % (MANUAL) 0 % (0-2); EOSINOPHILS % (MANUAL) 0 % (0-6); LYMPHOCYTES % (MANUAL) 5 % (13-45); MONOCYTES % (MANUAL) 7 % (3-13); SEGMENTED NEUTROPHILS % (MAN) 82 % (42-78); TOTAL CELLS COUNTED 100
[2017-07-02 20:17] LABS: PLATELET COMMENT ADEQUATE
[2017-07-02 20:19] LABS: TOXIC VACUOLATION PRESENT
[2017-07-02 20:20] LABS: OVALOCYTES SLIGHT; PLATELET LARGE PRESENT; POLYCHROMASIA SLIGHT
[2017-07-02 20:27] LABS: TROPONIN I 0.358 ng/mL
[2017-07-02] MEDS ORDERED: HYDROMORPHONE HCL INJ/PF 2 MG/ML AMPULE IV ONE (21:15)
--- NOTE | 2017-07-02 21:23 | RADIOLOGY REPORT (SQ) ---
EXAM DESCRIPTION: CTA CHEST COMPLETED DATE/TIME: 07/02/2017 9:14 pm REASON FOR STUDY: Recent PE with worsening symptoms COMPARISON: 06/24/2017 TECHNIQUE: CT scan of the chest performed using helical scanning technique with dynamic intravenous contrast injection. Images reviewed with lung, soft tissue and bone windows. Reconstructed coronal and sagittal MPR images reviewed. Additional 3 dimensional post-processing performed to develop Maximal Intensity Projection images (NV P). All images stored on PACS. All CT scanners at this facility use dose modulation, iterative reconstruction, and/or weight based d osing when appropriate to reduce radiation dose to as low as reasonably achievable (ALARA). [facility]: Dose Right [facility]: CareDose [facility]: Dose Right [facility]: Teradose 4D [facility]: ieCrowd CONTRAST TYPE AND DOSE: contrast/concentration: Isovue 370.00 mg/ml; Total Contrast Delivered: 71.0 ml; Total Saline Delivered: 80.0 ml Contrast bolus not optimized for the pulmonary arteries. RENAL FUNCTION: GFR > 60. RADIATION DOSE: CT Rad equipment meets quality standard of care and radiation dose reduction techniq ues were employed. CTDIvol: 24.8 - 40.5 mGy. DLP: 1633 mGy-cm. . LIMITATIONS: None. FINDINGS: LUNGS AND PLEURA: Mild diffuse interstitial edema with small bilateral pleural effusions a nd associated compressive atelectasis. No pneumothorax. AORTA AND GREAT VESSELS: No aneurysm. Contrast bolus not optimized for the aorta. HEART: Small to moderate pericardial effusion. Mild coronary artery calcific disease. PULMONARY ARTERIES: Nondiagnostic evaluation. HILAR AND MEDIASTINAL STRUCTURES: No identified masses or abnormal nodes. HARDWARE: None in the chest. UPPER ABDOMEN: Hepatic steatosis. No acute findings. THYROID AND OTHER SOFT TISSUES: No masses. No adenopathy. BONES: No acute or significant finding. 3D MIPS: Confirm above findings. OTHER: No other significant finding. IMPRESSION: NONDIAGNOSTIC FOR THE EVALUATION OF PULMONARY EMBOLI DUE TO TIMING OF CONTRAST BOLUS. INTERVAL DEVELOPMENT OF SMALL TO MODERATE PERICARDIAL EFFUSION. CARDIOLOGY CONSULTATION RECOMMENDED. INTERVAL DEVELOPMENT OF MILD INTERSTITIAL EDEMA WITH SMALL BILATERAL PLEURAL EFFUSIONS. COMMENT: Quality ID # [id number]: Final reports with documentation of one or more dose reduction techniques (e.g., Automated exposure control, adjustment of the mA and/or kV according to patient size, use of iterative reconstruction technique) TECHNICAL DOCUMENTATION: JOB ID: [id number]- All Rights Reserved Reading location - IP/workstation name: [email or web address]
[2017-07-02] MEDS ORDERED: PIPERACILLIN/TAZOBACTAM 3.375 GM VIAL IV ONE (21:38)
[2017-07-02] MEDS ORDERED: ACETAMINOPHEN 325 MG TABLET PO ONE (21:38)
[2017-07-02] MEDS ORDERED: VANCOMYCIN HCL INJ 1000 MG VIAL IV ONE (21:38)
--- NOTE | 2017-07-02 21:48 | EKG REPORT ---
SEVERITY:- ABNORMAL ECG - SINUS TACHYCARDIA NONSPECIFIC T ABNORMALITIES, INFERIOR LEADS BORDERLINE ST ELEVATION, LATERAL LEADS, NEW, CLINICAL CORRELATION NEEDED, CONSIDER ACUTE INJURY. : Confirmed by: Cale Jones MD 02-Jul-2017 21:47:27
[2017-07-02 21:56] LABS: APPEARANCE,URINE SLIGHTLY-CLOUDY; BILIRUBIN,URINE SMALL (NEGATIVE); COLOR,URINE AMBER; GLUCOSE, URINE NEGATIVE (NEGATIVE); KETONES,URINE TRACE mg/dL (NEGATIVE); LEUKOCYTE ESTERASE,URINE NEGATIVE (NEGATIVE); NITRITE,URINE NEGATIVE (NEGATIVE); PROTEIN,URINE 100 mg/dL (NEGATIVE); URINE SPECIFIC GRAVITY 1.032
[2017-07-02] MEDS ORDERED: DIGOXIN INJ 0.5 MG/2 ML AMPULE IV ONE ×2 (21:58→23:46)
[2017-07-02] MEDS ORDERED: ASPIRIN 325 MG TABLET PO ONE (21:58)
[2017-07-02] MEDS ORDERED: ENOXAPARIN SODIUM INJ 150 MG/1 ML DISP.SYRIN SUBCUT SCH (22:45)
[2017-07-03] MEDS: FENTANYL CITRATE INJ/PF 100 MCG/2 ML AMPUL IV PRN ×2 (00:03→01:40)
[2017-07-03 01:36] VITALS: BP 104/76
--- NOTE | 2017-07-03 08:48 | EKG REPORT ---
SEVERITY:- ABNORMAL ECG - SINUS TACHYCARDIA BORDERLINE T ABNORMALITIES, INFERIOR LEADS LATERAL ST ELEVATIONS REMAIN UNCHANGED FROM EARLIER EKG, CLINICAL CORRELATION NEEDED. : Confirmed by: Cale Jones MD 03-Jul-2017 08:48:22
== END 2017-07-03 01:45 | disposition short-term general hospital (02) ==
LOC: ER 17:05
DX: I21.4 Non-ST elevation (NSTEMI) myocardial infarction (principal); I26.99 Other pulmonary embolism without acute cor pulmonale; J90 Pleural effusion, not elsewhere classified; R53.1 Weakness; E03.9 Hypothyroidism, unspecified; Z86.711 Personal history of pulmonary embolism; Z79.02 Long term (current) use of antithrombotics/antiplatelets; Z86.718 Personal history of other venous thrombosis and embolism
CPT/HCPCS: 93005; 96376; 94640; 99285; 96372; 96375; 96365; 96366; 96368; 36415; 87040; 82553; 82803; 82550; 83605; 85025; 87077; 80053; 81001; 84484; 87186; 83880; 71045; 71275; 93010; 36600; 94660 ×2; J1160; J3010 ×2; J1170; J2060; J3370; J7620; J2543

== ENCOUNTER 2017-07-23 17:08 | Emergency (ER) | payer BC ==
[2017-07-23] MEDS ORDERED: NORMAL SALINE 1000 ML 1,000 ML IV ONE (18:01)
--- NOTE | 2017-07-23 18:02 | ER Document Report ---
ED Medical Screen (RME) - General Chief Complaint: General Weakness Stated Complaint: SHORTNESS OF BREATH Time Seen by Provider: 07/23/17 17:56 Mode of Arrival: Wheelchair Information source: Patient Notes: 47-year-old female poor historian with recent diagnosis of pulmonary emboli on Xarelto presents from Dr. Carmona's office with concerns of hypotension tachycardia I have greeted and performed a rapid initial assessment of this patient. A comprehensive ED assessment and evaluation of the patient, analysis of test results and completion of the medical decision making process will be conducted by additional ED providers. PHYSICAL EXAMINATION: GENERAL: Well-appearing, well-nourished and in no acute distress. HEAD: Atraumatic, normocephalic. EYES: Pupils equal round extraocular movements intact, conjunctiva are normal. ENT: Nares patent NECK: Normal range of motion Heart: Tachycardic LUNGS: Tachypnea Musculoskeletal: Normal range of motion NEUROLOGICAL: Normal speech, normal gait. PSYCH: Normal mood, normal affect. SKIN: Warm, Dry, normal turgor, no rashes or lesions noted. TRAVEL OUTSIDE OF THE [place] IN LAST 30 DAYS: No - Related Data Allergies/Adverse Reactions: No Known Allergies Allergy (Verified 07/04/14 11:57) Past Medical History - Social History Chew tobacco use (# tins/day): No Frequency of alcohol use: None Drug Abuse: None - Past Medical History Cardiac Medical History: Reports: Hx DVT, Hx Hypertension, Hx Pulmonary Embolism Pulmonary Medical History: Denies: Hx Tuberculosis Endocrine Medical History: Reports: Hx Hypothyroidism Renal/ Medical History: Denies: Hx Peritoneal Dialysis Past Surgical History: Reports: Hx Cardiac Catheterization, Hx Gynecologic Surgery, Hx Tonsillectomy. Denies: Hx Pacemaker - Immunizations Immunizations up to date: Yes Hx Diphtheria, Pertussis, Tetanus Vaccination: Yes History of Influenza Vaccine for 01/2017 - 07/2017 Season: No Physical Exam - Vital signs Vitals: Temp Pulse Resp BP Pulse Ox 98.2 F 126 H 16 120/92 H 96 07/23/17 17:21 07/23/17 17:21 07/23/17 17:21 07/23/17 17:21 07/23/17 17:21 Course - Vital Signs Vital signs: Temp Pulse Resp BP Pulse Ox 98.2 F 126 H 16 120/92 H 96 07/23/17 17:21 07/23/17 17:21 07/23/17 17:21 07/23/17 17:21 07/23/17 17:21
[2017-07-23] MEDS ORDERED: ONDANSETRON HCL INJ/PF 4 MG/2 ML SDV IV ONE (19:03)
--- NOTE | 2017-07-23 19:03 | ER Document Report ---
ED General - General Chief Complaint: General Weakness Stated Complaint: SHORTNESS OF BREATH Time Seen by Provider: 07/23/17 17:56 Mode of Arrival: Wheelchair Notes: Patient is a 47 year old female with a past medical history of factor V Leiden, currently anticoagulated for a pulmonary embolus who presents with 3 weeks of nausea, vomiting, diarrhea, and was referred by her primary care doctor today due to concerns of tachycardia and hypotension. Patient was seen and hospitalized at the beginning of the month at [facility] due to concerns of a pericardial effusion as well as elevated troponin levels and BNP levels. She states that while there she was diagnosed with pericarditis, started on colchicine, had her anticoagulants resumed and was subsequently discharged home. She reports that her heart rate remained elevated throughout the duration of that hospitalization including at the time of discharge. She notes that she has been having difficulty tolerating oral intake for the past 3-4 weeks and was diagnosed with gastritis during her hospitalization. She states that she was started on Prevacid for this but this has not completely resolved her symptoms although it has somewhat improved them. She notes that she continues to have multiple dietary indiscretions including heavy use of citrus juices such as orange juice which she does admit worsens her symptoms. She does however note that since being discharged her orthopnea, shortness of breath and chest pain have all completely resolved. The patient attributes her elevated heart rate and blood pressure being lower today to dehydration. She currently denies any chest pain, shortness of breath , lightheadedness, abdominal pain, focal weakness or numbness. She notes that she has been compliant with all medications. TRAVEL OUTSIDE OF THE [place] IN LAST 30 DAYS: No - Related Data Allergies/Adverse Reactions: No Known Allergies Allergy (Verified 07/04/14 11:57) Past Medical History - General Information source: Patient - Social History Smoking Status: Never Smoker Chew tobacco use (# tins/day): No Frequency of alcohol use: None Drug Abuse: None Lives with: Family Family History: Reviewed & Not Pertinent Patient has suicidal ideation: No Patient has homicidal ideation: No - Past Medical History Cardiac Medical History: Reports: Hx DVT, Hx Hypertension, Hx Pulmonary Embolism Pulmonary Medical History: Denies: Hx Tuberculosis Endocrine Medical History: Reports: Hx Hypothyroidism Renal/ Medical History: Denies: Hx Peritoneal Dialysis Past Surgical History: Reports: Hx Cardiac Catheterization, Hx Gynecologic Surgery, Hx Tonsillectomy. Denies: Hx Pacemaker - Immunizations Immunizations up to date: Yes Hx Diphtheria, Pertussis, Tetanus Vaccination: Yes Hx Pneumococcal Vaccination: 07/03/09 Review of Systems - Review of Systems Notes: Constitutional: Negative for fever. HENT: Negative for sore throat. Eyes: Negative for visual changes. Cardiovascular: Negative for chest pain. Respiratory: Negative for shortness of breath. Gastrointestinal: Negative for abdominal pain, positive for vomiting and diarrhea Genitourinary: Negative for dysuria. Musculoskeletal: Negative for back pain. Skin: Negative for rash. Neurological: Negative for headaches, weakness or numbness. 10 point ROS negative except as marked above and in HPI. Physical Exam - Vital signs Vitals: Temp Pulse Resp BP Pulse Ox 98.2 F 126 H 16 120/92 H 96 07/23/17 17:21 07/23/17 17:21 07/23/17 17:21 07/23/17 17:21 07/23/17 17:21 Interpretation: Tachycardic Notes: PHYSICAL EXAMINATION: GENERAL: Well-appearing, well-nourished and in no acute distress. HEAD: Atraumatic, normocephalic. EYES: Pupils equal round and reactive to light, extraocular movements intact, sclera anicteric, conjunctiva are normal. ENT: nares patent, oropharynx clear without exudates. Dry mucous membranes. NECK: Normal range of motion, supple without lymphadenopathy LUNGS: Breath sounds clear to auscultation bilaterally and equal. No wheezes rales or rhonchi. HEART: Regular tachycardia without murmurs ABDOMEN: Soft, nontender, normoactive bowel sounds. No guarding, no rebound. No masses appreciated. EXTREMITIES: Normal range of motion, no pitting or edema. No cyanosis. NEUROLOGICAL: No focal neurological deficits. Moves all extremities spontaneously and on command. PSYCH: Normal mood, normal affect. SKIN: Warm, Dry, normal turgor, no rashes or lesions noted. Course - Re-evaluation Re-evalutation: 07/23/17 18:59 Patient presents with complaints of generalized weakness with associated nausea , vomiting and diarrhea that has been ongoing for at least the past 3 weeks. The patient reports that she was seen by her primary care doctor today and referred to the emergency department due to ongoing tachycardia and borderline hypotension. The patient was transferred to [facility] 3 weeks ago for concern of a pericardial effusion as well as a known pulmonary embolus, currently taking Xarelto. The patient reports that the effusion was followed while she was hospitalized and noted to be stable, felt to be secondary to pericarditis and was subsequently placed on colchicine. She reports that overall her symptoms secondary to her pulmonary embolus and pericardial effusion have significantly improved in the past 3 weeks not worsened. She is clear to state that she had orthopnea that has now completely resolved and that she no longer has shortness of breath and has minimal chest pain relative to 3 weeks ago. This does go firmly against and a new or worsening pulmonary embolus or worsened pericardial effusion or tamponade. Bedside echocardiogram does show a remote residual, mild pericardial effusion with no evidence of tamponade. Patient's vitals at time of presentation do show ongoing tachycardia, although her blood pressure is within acceptable limits. The patient is also clear to state that she remained tachycardic throughout the duration of her time at [facility] and was discharged with a heart rate greater than 100 per her recollection stating "they just kept checking and saying it was still high". Patient does appear clinically very dehydrated. The etiology of her vomiting and diarrhea apparently was attributed to severe gastritis and she was apparently placed on Prevacid for that complaint. Diarrhea however will be an atypical feature of gastritis. However, on examination she does not have any abdominal tenderness to suggest an acute appendicitis, mesenteric ischemia, biliary pathology or acute pancreatitis. I do not believe a repeat CTA is indicated as the patient ready has a known pulmonary embolus and a known pericardial effusion both which appears stable from the standpoint of a bedside echocardiogram as well as the patient's report that the clinical symptomology from these pathologies is actually been improving over the last 3 weeks. Will obtain basic labs, provide IV fluids, and continue to reassess the patient. 07/23/17 20:43 Labs are unremarkable, troponin has normalized and the last time the patient was evaluated here, she remains asymptomatic, has tolerated oral fluids without difficulty, heart rate has down trended to 106 currently, current blood pressure 122/94. Again patient is emphasize that she has remained tachycardic for at least the past 4-6 weeks and that this does not appear to be any different than her prior evaluations. I have made an attempt to contact the patient's primary care doctor Dr. Mcintosh who did refer her to the emergency department today to review treatment and disposition planning but he is not on- call. I will therefore speak with Dr. Perales who is currently covering for Dr. Mcintosh. 07/23/17 20:47 I have as spoken about this case with Dr. Perales who after reviewing the vitals, history, and labs is also agreeable to discharge with follow-up with Dr. Mcintosh on Wednesday. I have reviewed with this with the patient and she likewise is very agreeable to discharge home. - Vital Signs Vital signs: Temp Pulse Resp BP Pulse Ox 98.2 F 126 H 22 H 122/94 H 100 07/23/17 17:21 07/23/17 17:21 07/23/17 20:40 07/23/17 20:40 07/23/17 20:40 - Laboratory Result Diagrams: 07/23/17 18:23 07/23/17 18:23 Laboratory results interpreted by me: 07/23/17 07/23/17 18:23 18:23 Hgb 11.3 L Hct 35.2 L MCH 26.7 L RDW 14.9 H Lymphocytes % 12.5 L Monocytes % 14.9 H Carbon Dioxide 32 H Direct Bilirubin 0.5 H Discharge - Discharge Clinical Impression: Tachycardia, Dehydration, Vomiting and diarrhea Condition: Stable Disposition: HOME, SELF-CARE Additional Instructions: Please follow-up with your doctor on wednesday. May take Zofran as needed for nausea. Return to the emergency department immediately if you have any symptoms that are worrisome to you including chest pain, shortness of breath, passing out, abdominal pain, become unable to tolerate fluids for more than 12 hours, or any other symptoms that are worrisome to you. Prescriptions: Ondansetron [Zofran Odt 4 mg Tablet] 1 - 2 tab PO Q4H PRN #15 tab.rapdis PRN Reason: For Nausea/Vomiting Referrals: DEX MCINTOSH MD [Primary Care Provider] - 07/26/17
[2017-07-23 19:06] LABS: ABSOLUTE LYMPHOCYTES (AUTO) 0.5 10^3/uL (0.5-4.7); ABSOLUTE MONOCYTES (AUTO) 0.7 10^3/uL (0.1-1.4); ABSOLUTE NEUT (AUTO) 3.1 10^3/uL (1.7-8.2); BASOPHILS % (AUTO) 0.3 % (0-2); EOSINOPHILS % (AUTO) 0.9 % (0-6); HEMATOCRIT 35.2 % (36.0-47.0); HEMOGLOBIN 11.3 g/dL (12.0-15.5); LYMPHOCYTES % (AUTO) 12.5 % (13-45); MEAN CORPUSCULAR HEMOGLOBIN 26.7 pg (27.0-33.4); MEAN CORPUSCULAR HGB CONC 32.2 g/dL (32.0-36.0); MEAN CORPUSCULAR VOLUME 83 fl (80-97); MONOCYTES % (AUTO) 14.9 % (3-13); PLATELET COUNT 301 10^3/uL (150-450); RED BLOOD COUNT 4.24 10^6/uL (3.72-5.28); RED CELL DISTRIBUTION WIDTH 14.9 % (11.5-14.0); SEGMENTED NEUTROPHILS % (AUTO) 71.4 % (42-78); TOTAL CELLS COUNTED % (AUTO) 100 %; WHITE BLOOD COUNT 4.4 10^3/uL (4.0-10.5)
[2017-07-23 19:39] LABS: CREATINE KINASE MB < 0.22 ng/mL (<4.55)
[2017-07-23 19:51] LABS: ALANINE AMINOTRANSFERASE 33 U/L (9-52); ALBUMIN 3.6 g/dL (3.5-5.0); ALKALINE PHOSPHATASE 77 U/L (38-126); ANION GAP 9 (5-19); ASPARTATE AMINO TRANSFERASE 22 U/L (14-36); BILIRUBIN,DIRECT 0.5 mg/dL (0.0-0.4); BLOOD UREA NITROGEN 7 mg/dL (7-20); CALCIUM 9.5 mg/dL (8.4-10.2); CARBON DIOXIDE 32 mmol/L (22-30); CHLORIDE 98 mmol/L (98-107); CREATINE KINASE 37 U/L (30-135); GLUCOSE 85 mg/dL (75-110); POTASSIUM 4.1 mmol/L (3.6-5.0); SODIUM 139.3 mmol/L (137-145); TOTAL PROTEIN 7.7 g/dL (6.3-8.2)
[2017-07-23] MEDS ORDERED: ONDANSETRON ODT 4 MG TAB (6 TAB/ER DISP) PO PRN (20:52)
[2017-07-23 20:56] VITALS: BP 122/94
== END 2017-07-23 21:01 | disposition home or self-care (01) ==
LOC: ER 17:08
DX: R53.1 Weakness (principal); R06.02 Shortness of breath; R11.2 Nausea with vomiting, unspecified; R19.7 Diarrhea, unspecified; R00.0 Tachycardia, unspecified; E86.0 Dehydration; R11.10 Vomiting, unspecified; I10 Essential (primary) hypertension; Z86.718 Personal history of other venous thrombosis and embolism; Z86.711 Personal history of pulmonary embolism; Z79.01 Long term (current) use of anticoagulants
CPT/HCPCS: 99285; 96361; 96374; 36415; 82553; 82550; 85025; 80053; 84484; J2405; J7030

== ENCOUNTER → 2018-09-16 | Outpatient (CLI) | payer BC ==
--- NOTE | 2018-09-16 13:11 | WOMENS IMAGING REPORT ---
EXAM DESCRIPTION: TRANSVAGINAL ULTRASOUND COMPLETED DATE/TIME: 09/16/2018 12:43 pm REASON FOR STUDY: N92.5 POSTMENOPAUSAL ATROPHIC VAGINTIS N92.5 OTHER SPECIFIED IRREGULAR MENSTRUATI ON COMPARISON: Pelvic ultrasound 03/20/2016 TECHNIQUE: Dynamic and static grayscale images acquired of the pelvis via transvaginal approach and recorded on PACS. Additional selected color Doppler and spectral images recorded. LIMITATIONS: Body habitus limits the exam FINDINGS: UTERUS: Uterus is 7 x 4 x 3 cm in size with a 1.5 cm posterior fundal fibroid. ENDOMETRIAL STRIPE: Endometrial stripe is 9 mm in thickness. CERVIX: Closed, multiple nabothian cysts RIGHT OVARY AND DOPPLER: Not visualized due to adnexal bowel gas and limited acoustic window. LEFT OVARY AND DOPPLER: Hypoechoic mass in the left adnexa, 5 cm in size. Minimal internal color fl ow and Doppler. This could represent a large pedunculated fibroid. Ovarian mass could not entirely be excluded. FREE FLUID: None noted. OTHER: No other significant finding. IMPRESSION: 5 cm left adnexal mass. This could represent a large pedunculated fibroid. Ovarian mas s is also possible. Right ovary not visualized. Normal size uterus with small 1.5 cm fundal fibroid. TECHNICAL DOCUMENTATION: JOB ID: [id number] [employer]- All Rights Reserved Reading location - IP/workstation name: [email or web address]
== END ==
LOC: WI 11:29
PROVIDERS: ATTEND Obstetrics & Gynecology Gynecology
DX: N92.5 Other specified irregular menstruation (principal)
CPT/HCPCS: 76830